=== PATIENT | female | born 1985 ===

== ENCOUNTER 2021-09-11 22:43 | Emergency (ER) | payer OTHER ==
[~2021-09-11] VITALS: Ht 162.6 cm; Wt 56.7 kg
[2021-09-12] MEDS ORDERED: KETO10TA2 PO (00:51)
== END 2021-09-12 01:19 ==
LOC: ER 22:43
DX: M25.511 Pain in right shoulder (principal)

== ENCOUNTER 2022-10-27 16:44 | Emergency (ER) | payer OTHER ==
[~2022-10-27] VITALS: Ht 162.6 cm; Wt 55.3 kg
[~2022-10-27 16:44] MED LIST: KETO10TA2 PO
== END 2022-10-27 21:18 | disposition home or self-care (01) ==
LOC: ER 16:44
PROVIDERS: General Practice
DX: R53.81 Other malaise (principal); R53.1 Weakness